=== PATIENT | male | born 2000 | race African-American/Black ===

== ENCOUNTER 2025-05-12 14:16 | Emergency (ER) | payer MEDICAID ==
[~2025-05-12] VITALS: Ht 195.6 cm; Wt 139.5 kg
[2025-05-12 14:18] VITALS: TEMP 98.5
--- NOTE | 2025-05-12 14:28 | ELECTROCARDIOGRAPH REPORT ---
[facility] Test Date: 2025-05-12 Test Time: 14:23:52 Pat Name: KAMALJIT KRAMER Department: EMERGENCY ROOM Room: Gender: M Computer Operations Specialist: KENNY : 2000 Requested By: MARYURI ADAM Order Number: [id number] Reading MD: Measurements Intervals [place] Rate: 102 P: -4 KS: 124 QRS: 73 QRSD: 91 T: 31 QT: 326 QTc: 425 Interpretive Statements Sinus tachycardia Please click the below link to view image of tracing.
[2025-05-12 14:40] LABS: BASOPHILS % (AUTO) 0.4 % (0-1); EOSINOPHILS # (AUTO) 0.1 X10'3 (0-0.9); EOSINOPHILS % (AUTO) 1.6 % (0-6); HEMATOCRIT 45.1 % (42.0-52.0); HEMOGLOBIN 15.4 g/dl (14.0-17.9); LYMPHOCYTES # (AUTO) 2.4 X10'3 (1.1-4.8); LYMPHOCYTES % (AUTO) 28.6 % (21-51); MEAN CORPUSCULAR HEMOGLOBIN 31.9 PG (27.0-31.0); MEAN CORPUSCULAR HGB CONC 34.2 g/dL (33.0-36.5); MEAN CORPUSCULAR VOLUME 93.5 FL (78-98); MEAN PLATELET VOLUME 8.2 FL (7.4-10.4); MONOCYTES # (AUTO) 0.4 X10'3 (0-0.9); MONOCYTES % (AUTO) 4.6 % (2-12); NEUTROPHILS # (AUTO) 5.3 X10'3 (1.8-7.7); NEUTROPHILS % (AUTO) 64.8 % (42-75); PLATELET COUNT 262 X10'3 (140-440); RED BLOOD COUNT 4.83 X10'6 (4.70-6.10); RED CELL DISTRIBUTION WIDTH 13.5 % (11.5-14.5); WHITE BLOOD COUNT 8.2 X10'3 (4.5-11.0)
[2025-05-12 14:50] LABS: ALBUMIN 4.1 G/DL (3.4-5.0); ANION GAP 12 (8-16); BLOOD UREA NITROGEN 16 MG/DL (7-18); BUN/CREATININE RATIO 12.3 (10.0-20.0); CHLORIDE 107 MMOL/L (99-107); GLUCOSE 97 MG/DL (70-104); POTASSIUM 3.8 MMOL/L (3.5-5.1); SODIUM 144 MMOL/L (135-145); TOTAL CARBON DIOXIDE 24.7 MMOL/L (24-32); eCRCL 109 ML/MIN; eGFR 67 ML/MIN
[2025-05-12] MEDS ORDERED: GABA300C PO (17:17)
--- NOTE | 2025-05-12 17:28 | Physician Documentation ---
History of Present Illness ~ Chief Complaint: Weakness Stated Complaint: MUSCLES ARE WEAK Time Seen by MD: 16:43 OK to notify your PCP?: Yes Mode of Arrival: POV HPI 49-year-old male presents to the ED after having 2-3 weeks of decreased sensation in his lower extremities and his upper extremities. 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 Able to walk, but has tingling in his feet.. denies any HX of diabetes. States he stopped using Nitrous. Medication Reconciliation Allergies: Coded Allergies: No Known Allergies (Unverified , 05/12/25) Scheduled Cyanocobalamin (Vitamin B-12) (Vitamin B-12), 1 CAP PO DAILY Gabapentin (Neurontin), 1 CAP PO Q8H Physical Exam Vital Signs: Temperature: 98.5, Source: Oral, Heart Rate: 101, Respiratory Rate: 18, BP: 153/90, Pulse Oximetry: 97, Weight: 139.500 Oxygen Flow Rate: 0 Physical Exam General: Alert, no apparent distress. Respiratory: Lungs clear, no respiratory distress. Cardiovascular: Regular rate and rhythm, no murmurs. Gastrointestinal: Soft, nontender, nondistended. Bowels sounds present. Neurologic: Oriented x4. Reflexes intact Psychiatric: Normal mood and affect. Skin: Normal color, warm and dry. No edema, no ecchymosis. Progress Results/Orders Results/Orders Completed Orders - JHON CUNNINGHAM MARINE SPECIALIST Cyanocobalamin Tablet (Vitamin B-12 Tabl (05/12/25 17:30) Medications Received in ER Medications (Trade) Dose Ordered Sig/Brianna Route PRN Reason Start Time Stop Time Status Last Admin Dose Admin (Vitamin B-12 tablet) 500 mcg NOW ONCE PO 05/12/25 17:30 05/12/25 17:31 DC 05/12/25 18:00 500 MCG Vital Signs 05/12/25 05/12/25 05/12/25 14:18 16:46 18:06 Temp 98.5 Pulse 101 86 Resp 16 18 18 B/P (MAP) 153/90 114/69 Pulse Ox 97 99 O2 Flow Rate 0 Laboratory Tests Test 05/12/25 14:31 White Blood Count 8.2 Red Blood Count 4.83 Hemoglobin 15.4 Hematocrit 45.1 Mean Corpuscular Volume 93.5 Mean Corpuscular Hemoglobin 31.9 H Mean Corpuscular Hemoglobin Concent 34.2 Red Cell Distribution Width 13.5 Platelet Count 262 Mean Platelet Volume 8.2 Neutrophils (%) (Auto) 64.8 Lymphocytes (%) (Auto) 28.6 Monocytes (%) (Auto) 4.6 Eosinophils (%) (Auto) 1.6 Basophils (%) (Auto) 0.4 Neutrophils # (Auto) 5.3 Lymphocytes # (Auto) 2.4 Monocytes # (Auto) 0.4 Eosinophils # (Auto) 0.1 Basophils # (Auto) 0.0 CBC Comment Sodium Level 144 Potassium Level 3.8 Chloride Level 107 Carbon Dioxide Level 24.7 Anion Gap 12 Blood Urea Nitrogen 16 Creatinine 1.30 H Estimated GFR/1.73 m2 67 BUN/Creatinine Ratio 12.3 Glucose Level 97 Calcium Level 9.0 Albumin 4.1 Chemistry Comments Medical Decision Making Findings Patient to follow up with primary care to obtain MRI and/or nerve Conduction study. I did start him on B12 and gabapentin to help with the neuropathy. Differential Dx:Considerations: Include: anemia, CVA, dehydration, dysrhythmia, electrolyte imbalance, encephalopathy, Guillain-Orondo, hypoglycemia, hypo tension, hypovolemia, labyrinthitis, Meniere's disease, myasathenia gravis, myocardial infarction, pulmonary embolus, renal failure, respiratory failure, TIA, VBI, vertigo central, vertigo peripheral, vestibular neuronitis, other Departure Disposition: 01 HOME / SELF CARE / HOMELESS Impression: Primary Impression: Nitrous oxide user Additional Impressions: Poisoning by nitrous oxide Adverse effect of nitrous oxide Toxic effect of nitrous fumes Condition: Stable Discharge Instructions: Chronic Drug Toxicity Additional Instructions: You need to follow up with your primary care provider for further evaluation. Nitrous toxicity can have long-lasting effects. I did prescribe you B12 and gabapentin to help with the neuropathy. However stopping the abuse of nitrous is the 1st step. Referrals: NO PRIMARY CARE PROVIDER (PCP) Prescriptions Cyanocobalamin (Vitamin B-12) (Vitamin B-12) 1,000 Mcg Capsule 1 CAP PO DAILY for 30 Days, #30 CAP 0 Refills Prov: JHON CUNNINGHAM NP 05/12/25 Gabapentin (Neurontin) 300 Mg Capsule 1 CAP PO Q8H for 30 Days, #90 CAP 0 Refills Prov: JHON CUNNINGHAM MARINE SPECIALIST 05/12/25 Education Educated: Patient Educated regarding: diagnosis Signature Scribe Signature: f Attestation: Scribed for Jhon Cunningham Itinerant Teacher Assistant by Jhon Flanagan NP . 05/12/25 17:15 JHON CUNNINGHAM NP May 12, 2025 17:28
[2025-05-12] MEDS ORDERED: CYAN-34 PO (17:31)
[2025-05-12] MEDS: cyanocobalamin 500mcg tablet PO ONE (18:00)
[2025-05-12 18:06] VITALS: BP 114/69; PULSE 86; RESP 18; O2SAT 99
== END 2025-05-12 18:11 | disposition home or self-care (01) ==
LOC: ER 14:17
DX: R53.1 Weakness (principal); T41.0X5A Adverse effect of inhaled anesthetics, initial encounter; T65.891A Toxic effect of other specified substances, accidental (unintentional), initial encounter; Z79.899 Other long term (current) drug therapy; Y92.89 Other specified places as the place of occurrence of the external cause
CPT/HCPCS: 36415; 80048; 85025; 93005; 99284